=== PATIENT | male | born 1950 | race Caucasian/White ===

== ENCOUNTER → 2018-10-08 16:34 | Outpatient (CLI) | payer MEDICARE, OTHER, SELFPAY ==
--- NOTE | 2018-10-08 16:40 | DI.RAD.S_ITS ---
PROCEDURE: XR CHEST 2V INDICATIONS: Unintentional weight loss, smoking history TECHNIQUE: 2 views of the chest were acquired. COMPARISON: None. FINDINGS: Surgical changes and devices: None. Lungs and pleura: Lungs are clear. No pleural effusions or pneumothorax. Mediastinum: Mediastinal contours are normal. Heart size is normal. Bones and chest wall: No suspicious bony abnormalities. Soft tissues appear unremarkable. IMPRESSION: No acute disease. No focal consolidation. Dictated by: Lambert Yadav M.D. on 10/08/2018 at 17:02 Approved by: Lambert Yadav M.D. on 10/08/2018 at 17:03
== END ==
PROVIDERS: Visit Provider Nurse Practitioner
DX: R63.4 Abnormal weight loss (principal); Z87.891 Personal history of nicotine dependence
CPT/HCPCS: 71046

== ENCOUNTER → 2018-10-09 07:38 | Outpatient (CLI) | payer MEDICARE, OTHER, SELFPAY ==
[2018-10-09 09:32] LABS: Hematocrit 44.6 % (41-53); Hemoglobin 15.1 g/dL (13.5-17.5); Mean Corpuscular HGB Conc 33.9 % (30-36); Mean Corpuscular Hemoglobin 32.5 PG (26-34); Platelet Count 206 X10^3/uL (150-400); Red Blood Cell Count 4.65 X10^6/uL (4.5-5.9); Red Cell Distribution Width 13.7 % (11.6-14.8); White Blood Cell Count 5.7 X10^3/uL (4.5-11.0)
[2018-10-09 09:47] LABS: Neutrophils Absolute Manual 4446 /uL (3000-5900); Total Cells Counted 100
[2018-10-09 09:54] LABS: RBC Morphology Normal Morphology
[2018-10-09 10:03] LABS: Alanine Aminotransferase 22 IU/L (21-72); Albumin Globulin Ratio 1.5 (1.0-2.8); Alkaline Phosphatase 44 U/L (38-126); Aspartate Aminotransferase 24 IU/L (17-59); BUN Creatinine Ratio 17.5 (6-22); Bilirubin Total 0.8 mg/dL (0.2-1.3); Blood Urea Nitrogen 14 mg/dL (9-20); Calcium 9.3 mg/dL (8.4-10.2); Carbon Dioxide 26 mmol/L (22-32); Chloride 105 mmol/L (98-107); Cholesterol 217 mg/dL (140-199); Estimated Glomerular Filt Rate > 60.0 mL/min (>60); Globulin 2.7 g/dL (1.7-4.1); Glucose 97 mg/dL (80-110); HDL Cholesterol 43 mg/dL (40-60); HEMOLYSIS < 15 (0-50); LDL Cholesterol Calculated 161 mg/dL (<100); Potassium 4.3 mmol/L (3.4-5.1); Sodium 139 mmol/L (137-145); Total Protein 6.7 g/dL (6.3-8.2); Triglycerides 65 mg/dL (35-150)
[2018-10-09 10:29] LABS: Prostate Specific Antigen Scrn 7.21 ng/mL (0.1-4.0)
[2018-10-09 10:31] LABS: TSH w/ Reflex to FT4 1.76 uIU/mL (0.47-4.68)
== END ==
PROVIDERS: Visit Provider Nurse Practitioner
DX: F17.200 Nicotine dependence, unspecified, uncomplicated (principal); Z00.00 Encounter for general adult medical examination without abnormal findings; Z86.39 Personal history of other endocrine, nutritional and metabolic disease; Z12.5 Encounter for screening for malignant neoplasm of prostate
CPT/HCPCS: 36415; 80053; 80061; 84443; 85025; G0103

== ENCOUNTER 2018-10-25 17:52 | Emergency (ER) | payer MEDICARE, OTHER, SELFPAY ==
[2018-10-25 17:55] VITALS: BP 124/77; PULSE 90; RESP 14; TEMP 36.4; O2SAT 99
--- NOTE | 2018-10-25 18:37 | DI.US.S_ITS ---
PROCEDURE: US ARTERIAL DUPLEX LE RT INDICATIONS: EVALUATE FOR PSEUDOANEURYSM RIGHT GROIN TECHNIQUE: Color and pulse Doppler interrogation was performed of the right lower extremity arterial system, with image documentation. COMPARISON: None. FINDINGS: Focus ultrasound examination of right groin shows no pseudoaneurysm or AV malformation.. Small amount of atherosclerotic plaque is seen within right common femoral artery and superficial femoral artery. Fat containing right inguinal hernia is seen which is partially reducible with compression. Defect measures approximately 9 mm in width. IMPRESSION: 1. No evidence of pseudoaneurysm or AVM seen in right groin. 2. Mild atherosclerotic plaques in right common femoral and superficial femoral arteries. 3. Partially reducible right inguinal hernia containing fat only with defect measures 9 mm in width. Dictated by: Franco Pineda M.D. on 10/25/2018 at 20:10 Approved by: Franco Pineda M.D. on 10/25/2018 at 20:14
--- NOTE | 2018-10-25 18:51 | ED.ABDPAIN ---
HPI - Abdominal Pain General Chief Complaint: Abdominal Pain Stated Complaint: groin swelling/anxiety Time Seen by Provider: 10/25/18 18:08 Source: patient Mode of arrival: ambulatory Limitations: no limitations History of Present Illness HPI narrative: Patient is a 68-year-old male who presents with a bulging in his right groin. He has noticed it there for the last week. It is worse when he stands up and walks. He states that he has been exercising more but does not really remember any specific injury. He said he had this once before a few years ago they told him it was an abdominal strain. He denies any testicular pain no testicular swelling. No numbness or tingling in his legs. He really has no abdominal pain nausea or vomiting. He has not taken anything [id number] for his pain. He is concerned because of the slight bulge he feels. MD complaint: abdominal pain Pain Consistency: constant Quality: fullness Migration to: no migration Relieving factors: nothing Exacerbating factors: nothing Related Data Previous Rx's Medication Instructions Recorded hydroxyzine HCl 10 mg tablet 10 mg PO TID PRN #90 tab 10/08/18 fluvoxamine 50 mg tablet 150 mg PO BEDTIME #45 tab 10/20/18 Allergies Allergy/AdvReac Type Severity Reaction Status Date / Time No Known Drug Allergies Allergy Verified 10/25/18 18:04 Review of Systems Review of Systems GENERAL: Denies chills, fatigue, malaise, fever, sweats, travel HEENT: Denies sinus pain, ear pain, sore throat, difficulty swallowing, neck pain RESPIRATORY: Denies dyspnea, cough, wheezing, hemoptysis, sputum. CARDIOVASCULAR: Denies chest pain, palpitations, orthopnea, edema GASTROINTESTINAL: Denies nausea, vomiting, abdominal pain, diarrhea, constipation, melena. : Right groin pain see HPI Denies dysuria, frequency, incontinence, hematuria, urinary retention, flank pain. MUSCULOSKELETAL: Denies weakness, joint pain, or bony pain SKIN: No rash, no erythema, no pruritus NEUROLOGIC: Denies weakness, dizziness, headache, numbness, change in speech, confusion PSYCHIATRIC: No concerning psychosocial issues. 12 point review of systems is negative except for those stated above and HPI [facility] Medical History Anxiety (Acute) Social History Smoking Status: Current every day smoker Social History Smoking Status: Current every day smoker Exam Initial Vital Signs Initial Vital Signs: Vital Signs Temperature 97.6 F 10/25/18 17:55 Pulse Rate 90 10/25/18 17:55 Respiratory Rate 14 10/25/18 17:55 Blood Pressure 124/77 10/25/18 17:55 Pulse Oximetry 99 10/25/18 17:55 GENERAL: Well-appearing, well-nourished and in no acute distress. HEENT: Head atraumatic,EOMI, pupils reactive, CARDIOVASCULAR: Regular rate and rhythm without murmurs, rubs or gallops. RESPIRATORY: Breath sounds equal bilaterally, no wheezes rales or rhonchi. ABDOMEN: Soft, nontender. Normoactive bowel sounds all 4 quadrants. No guarding or rebound. : Right groin area very minimal swelling possible lymph node however where he feels the swelling is close to his femoral artery. He has a good strong pulse. No testicular pain no testicular swelling no hernia bilaterally. EXTREMITIES: Normal range of motion, no clubbing or edema. Neurovascularly intact NEUROLOGICAL: Alert and oriented x4.Normal gait and speech. Cranial nerves II through XII grossly intact. SKIN: Warm, dry, no laceration, no petechiae, no rashes or lesions. Course Orders Ordered: ED Orders 10/25/18 18:37 US arterial duplex LE RT Stat Vital Signs - 8 hr 10/25/18 17:55 10/25/18 20:16 10/25/18 20:18 Temperature 97.6 F 97.3 F L Pulse Rate 90 80 73 Respiratory Rate 14 16 Blood Pressure 124/77 Blood Pressure [Right Arm] 113/71 Pulse Oximetry 99 96 96 MDM - Abdominal Pain Imaging Data US arterial duplex: Radiologist's impression: PROCEDURE: US ARTERIAL DUPLEX LE RT INDICATIONS: EVALUATE FOR PSEUDOANEURYSM RIGHT GROIN TECHNIQUE: Color and pulse Doppler interrogation was performed of the right lower extremity arterial system, with image documentation. COMPARISON: None. FINDINGS: Focus ultrasound examination of right groin shows no pseudoaneurysm or AV malformation.. Small amount of atherosclerotic plaque is seen within right common femoral artery and superficial femoral artery. Fat containing right inguinal hernia is seen which is partially reducible with compression. Defect measures approximately 9 mm in width. IMPRESSION: 1. No evidence of pseudoaneurysm or AVM seen in right groin. 2. Mild atherosclerotic plaques in right common femoral and superficial femoral arteries. 3. Partially reducible right inguinal hernia containing fat only with defect measures 9 mm in width. Dictated by: Franco Pineda M.D. on 10/25/2018 at 20:10 MDM Narrative Medical decision making narrative: Patient's ultrasound does show reducible fat containing hernia. I discussed with patient this may require surgical intervention if it continues to cause problems. However no emergent surgery needed. There is no evidence of any arterial abnormality. Patient is overall feeling better. No further testing or imaging indicated at this time. Discharge Plan Departure Patient Disposition: Home Clinical Impression: Inguinal hernia Qualifiers: Obstruction and gangrene presence: with obstruction but without gangrene Laterality: unilateral Recurrence: not specified as recurrent Qualified Code(s): K40.30 - Unilateral inguinal hernia, with obstruction, without gangrene, not specified as recurrent Discharge Date/Time: 10/25/18 20:33 Interventions: ED Discharge Assessment Last Done: 10/25/18 20:33 Instructions: Groin Hernia -- Adult Activity Restrictions/Additional Instructions: *You have been diagnosed with fat containing inguinal hernia *What to do: you may require surgical intervention however at this time it is not emergent. I recommend that he follow up outpatient with surgery. If you feel like it is getting larger or more painful return to the emergency department for further evaluation *Continue to taKe medications as directed The ibuprofen 600 mg every 6-8 hours if needed for mild to moderate pain *Follow up with your primary care provider in 2-3 days *Return to ER if you should have increasing swelling, increasing pain or any new, worsening or concerning symptoms Prescriptions: No Action fluvoxamine 50 mg tablet 150 mg PO BEDTIME Qty: 45 RF: 1 hydroxyzine HCl 10 mg tablet 10 mg PO TID PRN (Reason: anxiety) Qty: 90 RF: 0 Referrals: [facility] [Provider Group]
[2018-10-25 20:16] VITALS: PULSE 80; O2SAT 96
[2018-10-25 20:18] VITALS: BP 113/71; PULSE 73; RESP 16; TEMP 36.3; O2SAT 96
== END 2018-10-25 20:33 | disposition home or self-care (01) ==
PROVIDERS: Emergency Provider Emergency Medicine; Family Provider Nurse Practitioner
DX: K40.30 Unilateral inguinal hernia, with obstruction, without gangrene, not specified as recurrent (principal)
CPT/HCPCS: 93926; 99282; 99283

== ENCOUNTER 2018-11-23 12:59 | Day surgery (SDC) | payer MEDICARE, OTHER, SELFPAY ==
[2018-11-16 14:41] VITALS: BMI 24.7
[2018-11-17 14:45] VITALS: BMI 24.7
[2018-11-23] VITALS (10 sets, daily range): BP systolic 113–141; BP diastolic 71–87; PULSE 52–68; RESP 12–19; TEMP 36.3–37.1; O2SAT 91–99; BMI 24.7
[2018-11-23] MEDS: LACTATED RINGERS 1,000 ML 100 ML IV ×2 (13:52→15:34)
--- NOTE | 2018-11-23 14:12 | PM.PREOP ---
Pre-operative Note Interval Note History & Physical reviewed/Exam performed by Physician: Yes Changes to H&P: No
[2018-11-23] MEDS: MIDAZOLAM 2 MG/2 ML VIAL IV (14:17)
[2018-11-23] MEDS: CEFAZOLIN 2 GM/100 ML FROZ.PIGGY IV (14:25)
--- NOTE | 2018-11-23 14:32 | SUR.OPER ---
Supine on padded OR bed, head on pillow, arms secured on padded arm boards at <90 degrees abduction, legs uncrossed, safety belt at thigh, tape over blanket over lower legs.
[2018-11-23] MEDS: BUPIVACAINE 0.25% (PF) VIAL 30 ML INJ (14:54)
--- NOTE | 2018-11-23 16:03 | PM.OP.1 ---
Operative Date/Time/Diagnoses Date of procedure: 11/23/18 Time of procedure: 16:07 Pre-op diagnosis: Right inguinal hernia Post-op diagnosis: same Procedure & Clinicians Procedure: open right inguinal hernia repair with mesh Same procedure as scheduled: Yes Indications: symptomatic right inguinal hernia Surgeon: Mike Vicente Yes if Unassisted: Yes Anesthesia Type: General Operative Notes Findings: direct right inguinal hernia Prosthetic devices, grafts, tissues, transplants, or devices: polypropelene mesh Estimated Blood Loss (mL): 5 Procedure in detail: The patient was brought to the operating room and placed supine on the table. Bilateral lower extremity compression devices were applied. General anesthesia was induced and she was intubated with an LMA. He was then prepped and draped in usual sterile fashion. A time-out was performed to ensure the correct patient procedure necessary equipment within the operating room. The external inguinal ring was identified. The skin incision was made in right groin above the inguinal ligament towards the external ring. The subcutaneous tissues were divided. The external oblique was exposed. A small incision within the aponeurosis of the external oblique was made and then the external oblique was opened along the direction of its fibers using Metzenbaum. The cord was identified and it was mobilized from the floor of the inguinal canal near the pubic tubercle. Once the cord was free it was protected out of the way. There was a significant floor defect consistent with a direct inguinal hernia. I inspected the cord, the vas deferens and the testicular vessels were identified and protected. The cremasteric fibers were skeletonized and there was no evidence of a indirect hernia. We selected a polypropylene inguinal hernia mesh. It was anchored to the periosteum of the pubic tubercle. We then placed interrupted 0 Prolene sutures along the inferior edge of the mesh to the shelving edge of the inguinal ligament. Several interrupted 0 Prolene sutures were used to attach the superior edge of the mesh to the conjoined tendon and then reapproximated the tails loosely around the internal ring. The wound was irrigated with saline and found to be hemostatic. The external oblique was reapproximated with a running 3 0 Vicryl suture. The subcutaneous tissues were reapproximated with 3 0 Vicryl and the skin was closed with a running 4 Monocryl followed by the application of Dermabond. The sponge instrument count at the end of the operation is correct. Patient emerged from anesthesia and was transferred the postoperative care unit in stable condition. In the procedure and ensure that both testicles were within the scrotum. Complications: none Condition: stable Disposition: same day surgery
[2018-11-23] MEDS: ACETAMINOPHEN 325 MG TABLET 650 MG PO (16:40)
== END 2018-11-23 17:50 | disposition home or self-care (01) ==
PROVIDERS: Family Provider Nurse Practitioner; PCP Nurse Practitioner; Visit Provider Surgery
PROC: (CPT 49505; principal; 2018-11-23 14:30)
DX: K40.90 Unilateral inguinal hernia, without obstruction or gangrene, not specified as recurrent (principal); F32.9 Major depressive disorder, single episode, unspecified; F41.9 Anxiety disorder, unspecified; H91.90 Unspecified hearing loss, unspecified ear; F17.200 Nicotine dependence, unspecified, uncomplicated
CPT/HCPCS: 49505; C1781; J0690; J1100; J2250; J2405; J2704; J3010

== ENCOUNTER 2018-11-26 15:05 | Emergency (ER) | payer MEDICARE, OTHER, SELFPAY ==
[2018-11-26 15:14] VITALS: BP 126/75; PULSE 65; RESP 17; TEMP 36.4; O2SAT 99; BMI 24.1
[2018-11-26] MEDS: LORazepam 2 MG/ML INJ IM (16:19)
[2018-11-26 17:28] LABS: Urine Amphetamines Negative (Negative); Urine Barbiturates Negative (Negative); Urine Benzodiazepines Negative (Negative); Urine Cocaine Negative (Negative); Urine MDMA Negative (Negative); Urine Methadone Negative (Negative); Urine Methamphetamines Negative (Negative); Urine Morphine/Opi cutoff 2000 Negative (Negative); Urine Oxycodone Negative (Negative); Urine Phencyclidine Negative (Negative); Urine Tetrahydrocannabinol Negative (Negative); Urine Tricyclic Antidepressant Negative (Negative)
[2018-11-26 17:57] VITALS: BP 132/86; PULSE 66; RESP 14; O2SAT 98
--- NOTE | 2018-11-26 18:31 | P.CONS_ITS ---
History of Present Illness Date Patient Seen: 11/26/18 Time Patient Seen: 16:33 Chief complaint: ANXIETY Reason for consult: 68 yo man with agitation and recent psych eval for depression and anxiety. Requesting provider: Selena Duque Narrative: CHIEF COMPLAINT: ?I just got really agitated and anxious.? HISTORY OF PRESENT ILLNESS: The patient is well known to me having recently evaluated him as an outpatient for depression and anxiety. The patient reports a 5 month history of anxiety, agitaiton and depression that has been worsening in recent weeks. He was seen and evaluated earlier this year in July during a trip to [place] and was treated with Fluvoxamine, Quetiapine, Hydroxyzine and Leftazepate (a benzodiazepine). This appeared to help somewhat, but he may not have continued taking the medications consistently since returning. 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 I saw the patient as an outpatient on 11/19/2018 and represcribed his previous medication. These included fluvoxamine, gabapentin, and clonazepam. Clonazepam was to be administered 3 times a day and according to his he has been taking his medication, as administered by her, religiously. She states that whenever she would give him his dose of clonazepam he would soon become extremely anxious and agitated. The patient recently underwent a hernia operation and has been required by his surgeon to rest and maintain minimal activity while as abdominal wound heals. This is been difficult due to the patient's extreme anxiety and agitation. HOSPITAL COURSE: The patient was administered a dose of lorazepam 0.5 mg IM and was seen about 30 minutes later. He reports feeling much less agitated, less anxious, and much calmer. COLLATERAL FROM STAFF: Staff note observing the extreme anxiety and agitation. PAST PSYCHIATRIC HISTORY: The patient has a past history of chronic depression and intermittent episodes of acute anxiety. His history dates back to 2003 to 2005 when he had a period of depression and anxiety and sought treatment. He was admitted once in 2005 for suicidal ideation and has had trials of several antidepressants but he can't remember which ones. SUBSTANCE USE HISTORY: Patient has a history of substance abuse many many years ago but no recent history of alcohol or drug use. FAMILY HISTORY: Brother is an alcoholic and mother had severe depression. SOCIAL HISTORY: Patient had a generally unremarkable childhood reaching normal developmental milestones. Graduated from high school and later attended college at [employer]. He worked as a for [employer] and later worked in construction. His longest period of employment was for the [employer] at the [employer]. DEVELOPMENTAL HISTORY: Normal developmental milestones. PCP: Arlene SOLANO SIGNIFICANT MEDICAL HISTORY: Patient denied any major medical problems except for his recent hernia surgery. [facility] Medical History Enlarged prostate (Acute) Anxiety (Chronic) Depression (Chronic) Hearing loss (Chronic) Surgical History Hx of prostate biopsy (Acute ~2012) Anesthesia (Resolved) Biceps muscle tear (Resolved ~10/2014) History of knee surgery (Resolved ~10/2014) Family History Father Renal failure Mother History of heart disease Social History marital status: household members: spouse occupational status: previously employed Smoking Status: Current every day smoker alcohol intake: never Family History Father Renal failure Mother History of heart disease Social History marital status: household members: spouse occupational status: previously employed Smoking Status: Current every day smoker alcohol intake: never Meds Home Medications Medication Instructions Recorded Confirmed Type fluvoxamine 100 mg tablet 200 mg PO BEDTIME #30 tab 10/27/18 11/26/18 Rx clonazepam 0.5 mg tablet 0.5 mg PO TID #30 tab 11/19/18 11/26/18 Rx omega-3 fatty acids-fish oil 300 500 mg PO DAILY cap 11/19/18 11/26/18 History mg-500 mg capsule acetaminophen [Tylenol] 650 mg PO Q6H PRN #60 cap 11/23/18 11/26/18 Rx gabapentin 300 mg capsule 600 mg PO BEDTIME #90 cap 11/26/18 11/26/18 Rx lorazepam [Ativan] 0.5 mg PO Q8H PRN 7 Days #21 tab 11/26/18 Rx Allergies Allergy/AdvReac Type Severity Reaction Status Date / Time No Known Drug Allergies Allergy Verified 11/26/18 15:14 Review of Systems Review of Systems All systems reviewed & are unremarkable except as noted in HPI and below Exam Vital Signs (past 8 hours): - 11/26/18 15:14 11/26/18 17:57 Temperature 97.6 F Pulse Rate 65 66 Respiratory Rate 17 14 Blood Pressure 126/75 132/86 Pulse Oximetry 99 98 Oxygen Delivery Method Room Air Narrative Exam Narrative: MENTAL STATUS EXAM: Appearance: Neatly groomed, casually dressed, appears stated age Behavior: Calm, cooperative, good eye contact, no psychomotor agitation or slowing, no tremor or involuntary movements observed Gait: Normal gait Speech: Normal rate, volume, and robbin Mood: I feel much better now. Affect: Congruent with content, normal range and reactivity Thought Process: Linear, logical, goal-directed Thought Content: Denies suicidal ideation, denies homicidal ideation, denies hallucinations, no evidence of paranoia or delusions Attention: Attentive to interview Orientation: Oriented to person place and time Memory: Intact for interview, not formally tested Insight: Fair Judgment: Fair Objective Labs Labs: Laboratory Results - last 24 hr 11/26/18 17:10 Urine Opiates Screen Negative Ur Oxycodone Screen Negative Urine Methadone Screen Negative Ur Barbiturates Screen Negative U Tricyclic Antidepress Negative Ur Phencyclidine Scrn Negative Ur Amphetamines Screen Negative U Methamphetamines Scrn Negative Ur MDMA Scrn (Ecstasy) Negative U Benzodiazepines Scrn Negative Urine Cocaine Screen Negative U Marijuana (THC) Screen Negative Assessment & Plan (1) Depression: Current visit: No Status: Chronic (2) Anxiety: Current visit: No Status: Chronic (3) Acute anxiety: Current visit: No Status: Acute Assessment & Plan narrative: ASSESSMENT: Ben Castillo is a 68-year-old man with a history of depression and severe anxiety who presented in very acute distress, highly agitated, and in the midst of a panic attack. Diagnostically, he fits criteria for major depression with severe anxiety as well as panic disorder. He was initially treated 5 months ago in [place] with Luvox and hydroxyzine but may not have been entirely consistent in taking his medications as directed. He presented for his initial evaluation with a week ago and was restarted on his [place] medications with clonazepam added in order to control anxiety. He apparently has had a paradoxical reaction to the clonazepam causing extreme anxiety and agitation rather than its intende d anxiolytic effect. The patient was given a shot of lorazepam 0.5 mg IM which apparently has worked well. DIAGNOSES: Paradoxical reaction to clonazepam Major depressive disorder, recurrent, severe without psychotic features Panic disorder RECOMMENDATIONS: 1. Patient does not require admission or further hospitalization and can be safely discharged to home. 2. Discontinue clonazepam. 3. Start Lorazepam 0.5 mg #21, Sig. take 1 tab PO TID. 4. Continue other meds as prescribed. 5. I will see the patient at his follow up appointment scheduled with me on Thursday, Nov. Time Spent With Patient Time with patient: 15-24 minutes
--- NOTE | 2018-11-26 22:04 | ED.ANXIETY ---
HPI - Anxiety <RUSS Ordonez - Last Filed: 11/26/18 22:27> General Chief Complaint: Anxiety Stated Complaint: ANXIETY Time Seen by Provider: 11/26/18 15:29 Source: patient and family Mode of arrival: ambulatory Limitations: no limitations History of Present Illness HPI narrative: This is a 68-year-old gentleman, presents with his spouse with chief complain of anxiety and panic attacks. Patient reports for about a week he has been having recurring anxiety and panic attacks. He is a patient of Dr. Houser and and got a evaluation for anxiety and depression. Patient reports his anxiety is probably is due to situational stressor. Patient denies suicidal, or homicidal thoughts. He feels claustrophobic living in and recently purchased of property in [place] it has been stressful. There was a medication change about a week ago and now he is taking clonazepam 0.5 mg t.i.d. from hydroxyzine. He also takes daily Fluvoxamine and Gabapentine. According to , when patient takes clonazepam, patient exhibited increasing signs and symptoms of anxiety such as the becomes more restless and pacing around. She is afraid to medicate the patient with clonazepam at this point. Patient had also inguinal hernia repair on right groin and currently recovering from this and spouse is concerned. With increase in activity and ambulation, his surgical site in right groin has been more swollen. Patient denies fever, chills, nausea/vomiting, increasing pain on right inguinal hernia. He reports areas is the be swollen at this time. The patient and spouse is thinking about returning to [place] in December when the patient's condition improves. Related Data Home Medications Medication Instructions Recorded Confirmed omega-3 fatty acids-fish oil 300 500 mg PO DAILY cap 11/19/18 11/26/18 mg-500 mg capsule Previous Rx's Medication Instructions Recorded fluvoxamine 100 mg tablet 200 mg PO BEDTIME #30 tab 10/27/18 clonazepam 0.5 mg tablet 0.5 mg PO TID #30 tab 11/19/18 acetaminophen [Tylenol] 650 mg PO Q6H PRN #60 cap 11/23/18 gabapentin 300 mg capsule 600 mg PO BEDTIME #90 cap 11/26/18 lorazepam [Ativan] 0.5 mg PO Q8H PRN 7 Days #21 tab 11/26/18 Allergies Allergy/AdvReac Type Severity Reaction Status Date / Time No Known Drug Allergies Allergy Verified 11/26/18 15:14 Review of Systems <RUSS Ordonez - Last Filed: 11/26/18 22:27> Review of Systems ROS Unobtainable: All systems reviewed & are unremarkable except as noted in HPI and below PFSH <RUSS Ordonez - Last Filed: 11/26/18 22:27> Medical History Enlarged prostate (Acute) Anxiety (Chronic) Depression (Chronic) Hearing loss (Chronic) Surgical History (Updated 11/26/18 @ 22:13 by RUSS Ordonez) H/O inguinal hernia repair (Acute) History of inguinal hernia repair (Acute) Hx of prostate biopsy (Acute ~2012) Anesthesia (Resolved) Biceps muscle tear (Resolved ~10/2014) History of knee surgery (Resolved ~10/2014) Family History Father Renal failure Mother History of heart disease Social History marital status: household members: spouse occupational status: previously employed Smoking Status: Current every day smoker alcohol intake: never Family History Father Renal failure Mother History of heart disease Social History marital status: household members: spouse occupational status: previously employed Smoking Status: Current every day smoker alcohol intake: never Exam <RUSS Ordonez - Last Filed: 11/26/18 22:27> Narrative Exam Narrative: General appearance: well developed, well nourished, in moderate distress, pacing in the room during tragic by nursing staff. Head: normocephalic, atraumatic, no scalp lesions, non-tender. Eye: pupil equal, round. EOMI. Nose: nares patent. Oral: mucosa moist. Neck/Thyroid: neck supple, full range of motion, no visible masses. Skin: no suspicious rashes, lesions over visible areas. Warm and dry. Heart: S1-S2 with RRR. no clubbing, no cyanosis, no edema. Lungs: Lung sounds clear to auscultate bilaterally. Breathing even and unlabored without hyperventilation. No stridor. No accessory muscles used. Chest: normal shape and expansion. Abdomen: Ecchymosis and edema to R groin. Surgical incision site w/o signs of infection. non-obese, non-distended. Neurologic: alert and oriented. Cognitive exam, TRAFFIC I MANAGER and PNS grossly intact on informal exam. Psych: Cooperative, good eye contact, normal affect, noticed occasional sudden neck snapping to side and states this is not a new behavior/movements. Initial Vital Signs Initial Vital Signs: Vital Signs Temperature 97.6 F 11/26/18 15:14 Pulse Rate 65 11/26/18 15:14 Respiratory Rate 17 11/26/18 15:14 Blood Pressure 126/75 11/26/18 15:14 Pulse Oximetry 99 11/26/18 15:14 <Selena Duque DO - Last Filed: 11/30/18 07:28> Initial Vital Signs Initial Vital Signs: Vital Signs Temperature 97.6 F 11/26/18 15:14 Pulse Rate 65 11/26/18 15:14 Respiratory Rate 17 11/26/18 15:14 Blood Pressure 126/75 11/26/18 15:14 Pulse Oximetry 99 11/26/18 15:14 Course <RUSS Ordonez - Last Filed: 11/26/18 22:27> Orders Ordered: Discontinued Medications Lorazepam (Ativan) 2 mg IM NOW ONE Stop: 11/26/18 16:01 Last Admin: 11/26/18 16:19 Dose: 2 mg Vital Signs - 8 hr 11/26/18 15:14 11/26/18 17:57 Temperature 97.6 F Pulse Rate 65 66 Respiratory Rate 17 14 Blood Pressure 126/75 132/86 Pulse Oximetry 99 98 <DO Mansoor Ann Last Filed: 11/30/18 07:28> Orders Ordered: Discontinued Medications Lorazepam (Ativan) 2 mg IM NOW ONE Stop: 11/26/18 16:01 Last Admin: 11/26/18 16:19 Dose: 2 mg Vital Signs - 8 hr 11/26/18 15:14 11/26/18 17:57 Temperature 97.6 F Pulse Rate 65 66 Respiratory Rate 17 14 Blood Pressure 126/75 132/86 Pulse Oximetry 99 98 MDM - Anxiety <RUSS Ordonez - Last Filed: 11/26/18 22:27> Differential Diagnosis Differential diagnosis: Likely panic disorder and acute anxiety Medical Records Attestation: I reviewed the patient's medical records. Lab Data Attestation: I reviewed the patient's lab results. Lab Results 11/26/18 Range/Units 17:10 Urine Opiates Screen Negative (Negative) Ur Oxycodone Screen Negative (Negative) Urine Methadone Screen Negative (Negative) Ur Barbiturates Screen Negative (Negative) U Tricyclic Antidepress Negative (Negative) Ur Phencyclidine Scrn Negative (Negative) Ur Amphetamines Screen Negative (Negative) U Methamphetamines Scrn Negative (Negative) Ur MDMA Scrn (Ecstasy) Negative (Negative) U Benzodiazepines Scrn Negative (Negative) Urine Cocaine Screen Negative (Negative) U Marijuana (THC) Screen Negative (Negative) MDM Narrative Medical decision making narrative: This patient presents to ED with acute anxiety symptoms and panic attacks at home for the last week or so. There was recent medication change for his anxiety from hydroxyzine to clonazepam due to increase in anxiety symptoms. However, according to spouse, the patient's symptoms have not been improved. It appears to be the symptoms get worse which time when patient takes clonazepam. Patient also reports has a history of depression and had lost about 40 lb in the last several months due to not having the appetite. He has seen Dr. Houser with mood disorders. He has a follow-up appointment on the 12/03/18. Patient was medicated with Ativan IM injection 2 mg while in ED and patient's symptoms improved. Kindly Dr. Houser consulted with patient and had a [id number] evaluation in the ED. Patient was discharged to home with Ativan p.o. 0.5 mg t.i.d. as needed dose and is to follow up with Dr. Houser next week as scheduled. We discussed benzodiazepine the medication precautions and return precautions as well with patient and spouse. Patient is not currently suicidal or homicidal. No further questions were expressed and both agree with treatment plan. Patient advised to stop taking clonazepam at this time since he may having paradoxical medication effect from clonazepam. <Selena Duque, DO - Last Filed: 11/30/18 07:28> Lab Data Lab Results 11/26/18 Range/Units 17:10 Urine Opiates Screen Negative (Negative) Ur Oxycodone Screen Negative (Negative) Urine Methadone Screen Negative (Negative) Ur Barbiturates Screen Negative (Negative) U Tricyclic Antidepress Negative (Negative) Ur Phencyclidine Scrn Negative (Negative) Ur Amphetamines Screen Negative (Negative) U Methamphetamines Scrn Negative (Negative) Ur MDMA Scrn (Ecstasy) Negative (Negative) U Benzodiazepines Scrn Negative (Negative) Urine Cocaine Screen Negative (Negative) U Marijuana (THC) Screen Negative (Negative) Discharge Plan Departure Patient Disposition: Home Clinical Impression: Acute anxiety Discharge Date/Time: 11/26/18 17:58 Interventions: ED Discharge Assessment Last Done: 11/26/18 17:57 Instructions: DI for Anxiety -- Adult Activity Restrictions/Additional Instructions: You have been diagnosed with [acute anxiety, paradoxical medication reaction to clonazepam, situational stress]. What to do: *Take your medications as directed. Please stop taking clonazepam. Please take Ativan/lorazepam instead for acute anxiety feeling. This medication will cause drowsiness so please avoid drinking alcohol, drive, operating any heavy equipments. *Follow up with your primary care provider in 2-3 days, call for an appointment and please follow with Dr. Houser as scheduled next week. Let them know you were seen in the ED and that we asked you to be seen in follow up. *Return to ED if you have any new, worsening, or concerning symptoms, such as [increasing anxiety, chest pain, breathing difficulty, unable to tolerate fluids, any acute concerns]. Prescriptions: New lorazepam [Ativan] 0.5 mg tablet 0.5 mg PO Q8H PRN (Reason: anxiety) 7 Days Qty: 21 RF: 0 No Action Fish Oil 300-500 mg capsule 500 mg PO DAILY RF: 0 clonazepam 0.5 mg tablet 0.5 mg PO TID Qty: 30 RF: 0 fluvoxamine 100 mg tablet 200 mg PO BEDTIME Qty: 30 RF: 1 gabapentin 300 mg capsule 600 mg PO BEDTIME Qty: 90 RF: 2 acetaminophen [Tylenol] 325 mg capsule 650 mg PO Q6H PRN (Reason: pain) Qty: 60 RF: 0 Referrals: Arlene Lozano ARNP [Primary Care Provider] - Davion Houser MD [Physician] - <Selena Duque DO - Last Filed: 11/30/18 07:28> Cosign ED Attending Cosignature Attestation: I was immediately available in the department for consultation. This documentation has been reviewed and I agree with assessment and plan. Supervised by Selena Duque DO
== END 2018-11-26 17:58 | disposition home or self-care (01) ==
PROVIDERS: Emergency Medicine; Emergency Provider Nurse Practitioner Family; Family Provider Nurse Practitioner; PCP Nurse Practitioner
DX: F41.9 Anxiety disorder, unspecified (principal)
CPT/HCPCS: 80305; 96372; 99283; J2060

== ENCOUNTER → 2018-12-01 12:25 | Outpatient (CLI) | payer MEDICARE, OTHER, SELFPAY | PROVIDERS: Family Provider Nurse Practitioner; PCP Nurse Practitioner; Visit Provider Nurse Practitioner | DX: T81.31XA Disruption of external operation (surgical) wound, not elsewhere classified, initial encounter (principal); Z87.19 Personal history of other diseases of the digestive system; Z98.890 Other specified postprocedural states | CPT/HCPCS: 87070; 87077; 87186; 87205 ==

== ENCOUNTER → 2018-12-13 11:55 | Outpatient (CLI) | payer MEDICARE, OTHER, SELFPAY ==
--- NOTE | 2018-12-13 11:58 | DI.US.S_ITS ---
PROCEDURE: US ABDOMEN LIMITED INDICATIONS: POST OP SWELLING TECHNIQUE: Real-time focused scanning was performed of the abdomen, with image documentation. COMPARISON: None. FINDINGS: Ultrasound was performed of the right groin area. There is a complex fluid collection with internal septa in the right groin deep to the surgical incision measuring IMPRESSION: A 9.6 x 6.3 x 3.9 cm complex fluid collection with internal septa in the right groin deep to the skin incision was likely a hemolyzed hematoma. Less likely this could represent an evolving abscess. If clinically indicated, CT with contrast may be helpful for further characterization. Dictated by: Jefferson Jackson M.D. on 12/13/2018 at 16:11 Approved by: Jefferson Jackson M.D. on 12/13/2018 at 16:15
== END ==
PROVIDERS: PCP Nurse Practitioner; Visit Provider Surgery
DX: G89.18 Other acute postprocedural pain (principal); R19.09 Other intra-abdominal and pelvic swelling, mass and lump
CPT/HCPCS: 76705